=== PATIENT | male | born 1985 | race Two or more races ===

== ENCOUNTER 2021-02-18 11:55 | Emergency (ER) | payer SELFPAY ==
[2021-02-18 12:40] VITALS: BP 163/97; PULSE 63; RESP 16; TEMP 36.8; O2SAT 100; BMI 26.6
--- NOTE | 2021-02-18 13:06 | ED.DENTAL ---
HPI - Dental/Oral General Chief complaint: Dental/Oral Stated complaint: Tooth ache Time Seen by Provider: 02/18/21 13:06 Source: patient Mode of arrival: ambulatory History of Present Illness HPI Narrative: 35-year-old male with past medical history of hypertension presenting to the ED complaining right upper tooth pain times 2-3 weeks worsening last night. Denies fever, chills, drainage from area, difficulty/pain swallowing, ear/throat pain MD Complaint: tooth pain Related Data Previous Rx's Medication Instructions Recorded amoxicillin-pot clavulanate 1 tab PO Q12H 7 Days #14 tab 02/18/21 [Augmentin] hydrocodone-acetaminophen 1 tab PO Q8H PRN 3 Days #5 tab 02/18/21 ibuprofen 800 mg PO Q8H PRN #14 tab 02/18/21 Allergies Allergy/AdvReac Type Severity Reaction Status Date / Time No Known Allergies Allergy Verified 02/18/21 12:41 Review of Systems Review of Systems: Constitutional: No Fever, No Chills ENT/Mouth: No Ear Pain, No Nasal Congestion, No sore throat, No Swallowing Difficulty, +dental pain Cardiovascular: No Chest Pain, No SOB Respiratory: No Cough Musculoskeletal: No joint pain, No Myalgias, No Joint Swelling Skin: No Skin Lesions, No rash Yes all other systems are reviewed and are negative [facility] Past Medical History Attestation statement: The following information was validated with the patient. Medical History (Updated 02/18/21 @ 13:11 by ZOYA Flores) HTN (hypertension) Social History Social History Advance Directives: No Advance Directives Information Provided: No Physical Exam Vital Signs: Vital Signs: Last Vital Signs Temp 98.2 F 02/18/21 12:40 Pulse 63 02/18/21 12:40 Resp 16 02/18/21 12:40 BP 163/97 H 02/18/21 12:40 Pulse Ox 100 02/18/21 12:40 Body Mass Index 26.6 Const: General: cooperative, healthy appearing and no acute distress Orientation/consciousness: patient oriented x3 Limitations: no limitations HENMT: Other: 1st right upper bicuspid tooth broken/missing, 2nd bicuspid intact, both with gingival swelling/irritation and mild erythema. No cellulitis. No fluctuance/induration or abscess Head: Yes normal to inspection Ears: hearing grossly normal bilaterally and TM's normal bilaterally General nose exam: Normal external nose present Face and sinus: Yes normal facial exam Mouth: Normal oral and palatal mucosa present Throat: Yes posterior oropharynx normal, Yes tonsils normal, Yes uvula midline and No uvular edema Eyes: General: appearance normal, both eyes and all related structures EOM: EOMs intact bilaterally Neck: Neck: Yes normal visual inspection, Yes no lymphadenopathy and Yes no meningeal signs Resp: Effort & Inspection: normal respiratory effort and no respiratory distress Cardio: Rate: regular rate Skin: Rashes: no rashes Wounds: no wounds Neuro: General: patient oriented x3 and no meningeal signs Gait exam (Neuro): Normal gait present Extrem: General: Yes normal to inspection MDM - Dental/Oral MDM Narrative Medical decision making narrative: 35-year-old male with past medical history of hypertension presenting to the ED complaining right upper tooth pain times 2-3 weeks worsening last night. On exam vital signs stable, NAD, physical exam as above, consistent with gingivitis vs early abscess/dental infection. Discussed with patient needs to have close follow-up with dentist, will supply with dental list Discharge Plan Discharge Clinical Impression: Toothache Patient Disposition: Home, Self-Care Instructions: Toothache (ED) Additional Instructions: Augmentin is an antibiotic, place take as prescribed Meredith as an Opiate pain medication, take only when pain is severe for the next 3 days In addition take ibuprofen Please follow-up with a dentist If her symptoms persist or worsen, he develops fever, drainage from the area or swelling please return to the ED Prescriptions: New hydrocodone-acetaminophen 5-325 mg tablet 1 tab PO Q8H PRN (Reason: pain, severe) 3 Days Qty: 5 RF: 0 ibuprofen 800 mg tablet 800 mg PO Q8H PRN (Reason: pain) Qty: 14 RF: 0 amoxicillin-pot clavulanate [Augmentin] 875-125 mg tablet 1 tab PO Q12H 7 Days Qty: 14 RF: 0 Referrals: Dina Cochran DMD [Dentist] - 2 days
== END 2021-02-18 13:19 | disposition home or self-care (01) ==
PROVIDERS: Emergency Provider Emergency Medicine
DX: K08.89 Other specified disorders of teeth and supporting structures (principal); I10 Essential (primary) hypertension
CPT/HCPCS: 99283